=== PATIENT | male | born 2000 | race Two or more races ===

== ENCOUNTER 2025-07-15 23:19 | Emergency (ER) | payer OTHER ==
[~2025-07-15] VITALS: Ht 180.3 cm; Wt 117.0 kg
[2025-07-16] MEDS ORDERED: BENADRYL ALLERG25 MG PO (00:12)
[2025-07-16] MEDS ORDERED: DIPHENHYDRAMINE HCL 50 MG/ML VIAL 1ML IM ONE (00:15)
[2025-07-16] MEDS ORDERED: DIPHENHYDRAMINE HCL 50 MG/ML VIAL 1ML ONE (00:23)
== END 2025-07-16 01:04 | disposition home or self-care (01) ==
LOC: ER 23:20
DX: R21 Rash and other nonspecific skin eruption (principal); L29.9 Pruritus, unspecified; E10.9 Type 1 diabetes mellitus without complications